=== PATIENT | male | born 1950 | race Two or more races ===

== ENCOUNTER 2017-05-25 08:24 | Day surgery (SDC) | payer MEDICARE ==
[2017-05-19 12:15] VITALS: BMI 30.8
[~2017-05-25 08:24] MED LIST: DEXAMETHASONE SOD PHOSPHATE 10 MG/ML 1 ML VIAL IV ONE; FAMOTIDINE 20 MG/2 ML VIAL IV ONE; HYDROmorphone 1 MG/ML 1 ML SYRINGE IVP PRN; LACTATED RINGERS 1,000 ML IV SCH; LIDOCAINE 1% 20 ML VIAL (10MG/ML) FOR IV START INTRADERMA PRN; MIDAZOLAM 2 MG/2 ML VIAL IV PRN; ONDANSETRON 4 MG/2 ML VIAL IVP ONE; Pre Op ABX Message 1 EACH MISC MISCELLANE ONE; SCOPOLAMINE 1.5MG/72HR PATCH TRANSDERM ONE
[2017-05-25] MEDS ORDERED: NALOXONE 0.4 MG/ML 1 ML VIAL ONE (10:33)
[2017-05-25] MEDS ORDERED: NEOSTIGMINE 1 MG/ML 10 ML VIAL ONE (10:33)
[2017-05-25] MEDS ORDERED: SUCCINYLCHOLINE CHLORIDE 100 MG/5 ML SYR IV ONE (10:33)
[2017-05-25] MEDS ORDERED: PROPOFOL 10 MG/ML 20 ML VIAL IV ONE (10:33)
[2017-05-25] MEDS ORDERED: MIDAZOLAM 2 MG/2 ML VIAL ONE (10:33)
[2017-05-25] MEDS ORDERED: ROCURONIUM BROMIDE 10 MG/ML 10 ML VIAL IV ONE (10:33)
[2017-05-25] MEDS ORDERED: fentaNYL (PF) 50 MCG/ML 2 ML AMP ONE (10:33)
[2017-05-25] MEDS ORDERED: LIDOCAINE 1% INJ 10MG/ML (20 ML MDV) ONE (10:33)
[2017-05-25] MEDS ORDERED: GLYCOPYRROLATE 0.2 MG/ML 2 ML VIAL ONE (10:33)
[2017-05-25] MEDS ORDERED: LACTATED RINGERS 1,000 ML IV ONE (11:16)
[2017-05-25 11:51] VITALS: TEMP 96.8
[2017-05-25 12:02] VITALS: RESP 18
[2017-05-25 12:41] VITALS: BP 128/66; PULSE 65
--- NOTE | 2017-05-26 12:40 | OP ---
OPERATIVE REPORT Date of Surgery: DATE OF SERVICE: May 25, 2017 SURGEON: Elmer Perry D.O. ANESTHESIA: General. PREOPERATIVE DIAGNOSES: 1. Right vocal cord mass. 2. Dysphonia. 3. Neck pain. POSTOPERATIVE DIAGNOSES: 1. Right vocal cord cystic mass. 2. Cervical osteoarthritis. OPERATIVE BLOOD LOSS: None. SPECIMENS REMOVED: Right vocal cord mass, i.e. cystic. OPERATIVE INDICATIONS: This patient has had persistent dysphonia and has been found to have a mass of the right vocal cord. Removal was recommended. Thorough oropharyngeal examination will be performed under microscopic visualization for better assessment of his airway and hypopharynx. FINDINGS: Patient had a cystic mass at the midportion of the right vocal cord which was removed. The patient has mild generalized edema. OPERATIVE PROCEDURE: This patient was taken to the operating room, placed in the supine position. A general inhalation anesthetic was administered to the patient by mask and subsequently intubated with a #5 mL T-tube. Tooth guard was placed. Jako laryngoscope was placed into the patient's mouth with care to avoid any trauma to the lips, teeth, gums and tongue. Mouth was opened, tongue with depressed and the entire kassandra and hypopharynx was evaluated including base of tongue, vallecula, epiglottis, anterior posterior commissures, true and false vocal cords, ventricles, lateral pharynx, piriform sinus, aryepiglottic folds, etc. After thorough examination this was placed on suspension on the [place] and microscopic visualization was performed utilizing a 400 mm scope. There was a cystic mass of the right vocal cord which was removed with micro instrumentation with development of mucosal flap and removal. The flap was placed back into position. This lesion was removed and the patient tolerated this well. Followup will be in the office in 1 week for a recheck. The patient is to contact me if any problems should arise. She is on 5-7 days of voice rest. No heavy lifting or bending. MMODL / IJN: [id number] /
== END 2017-05-25 13:05 | disposition home or self-care (01) ==
LOC: OR 08:24
PROVIDERS: ATTEND Otolaryngology
DX: J38.3 Other diseases of vocal cords (principal); R49.0 Dysphonia; M47.812 Spondylosis without myelopathy or radiculopathy, cervical region; I10 Essential (primary) hypertension; E78.5 Hyperlipidemia, unspecified; Z87.891 Personal history of nicotine dependence; Z79.82 Long term (current) use of aspirin; Z79.899 Other long term (current) drug therapy
CPT/HCPCS: 88305; 31541; J2250; J1100; J2310; J2710; J2405; J2001; J3010; J0330; J2704

== ENCOUNTER → 2018-09-12 | Outpatient (CLI) | payer MEDICARE ==
[2018-09-12 13:29] LABS: HGB 15.4 gm/dL (13.0-17.5); MCH 28.5 pg (25.0-35.0); MCHC 32.7 g/dL (31.0-37.0); MCV 87.1 fL (80.0-100.0); Mean Platelet Volume 6.5; Platelet Count 348 k/uL (150-450); RDW 13.2 % (11.5-15.5); WBC 6.7 k/uL (3.8-10.6)
[2018-09-12 13:51] LABS: Anion Gap 9 mmol/L; Blood Urea Nitrogen 23 mg/dL (9-20); Carbon Dioxide 30 mmol/L (22-30); Chloride 102 mmol/L (98-107); Potassium 4.4 mmol/L (3.5-5.1); Sodium 141 mmol/L (137-145)
== END | disposition home or self-care (01) ==
LOC: LABPAT 11:50
PROVIDERS: ATTEND Internal Medicine Cardiovascular Disease
DX: Z01.812 Encounter for preprocedural laboratory examination (principal); R06.02 Shortness of breath
CPT/HCPCS: 80051; 82565; 84520; 85027

== ENCOUNTER 2018-09-20 07:18 | Day surgery (SDC) | payer MEDICARE ==
[2018-09-12 15:18] VITALS: BMI 33.7
[~2018-09-20 07:18] MED LIST changes: +ALPRAZolam 0.25 MG TAB PO PRN; +ALPRAZolam 0.5 MG TAB PO PRN; +ASPIRIN 325 MG TAB PO STA; +ATORVASTATIN 80 MG TAB PO STA; -DEXAMETHASONE SOD PHOSPHATE 10 MG/ML 1 ML VIAL IV ONE; -FAMOTIDINE 20 MG/2 ML VIAL IV ONE; -HYDROmorphone 1 MG/ML 1 ML SYRINGE IVP PRN; -LACTATED RINGERS 1,000 ML IV SCH; -LIDOCAINE 1% 20 ML VIAL (10MG/ML) FOR IV START INTRADERMA PRN; -MIDAZOLAM 2 MG/2 ML VIAL IV PRN; +NITROGLYCERIN SL TABS 0.4 MG TAB SUBLINGUAL PRN; -ONDANSETRON 4 MG/2 ML VIAL IVP ONE; -Pre Op ABX Message 1 EACH MISC MISCELLANE ONE; -SCOPOLAMINE 1.5MG/72HR PATCH TRANSDERM ONE; +SODIUM CHLORIDE 0.9% 1,000 ML in EMPTY BAG 1 BAG IV ONE
[2018-09-20] MEDS ORDERED: SODIUM CHLORIDE 0.9% 1,000 ML in EMPTY BAG 1 BAG IV ONE (07:26)
[2018-09-20] MEDS ORDERED: ALPRAZolam 0.25 MG TAB PO PRN (07:26)
[2018-09-20] MEDS ORDERED: ALPRAZolam 0.5 MG TAB PO PRN (07:26)
[2018-09-20] MEDS ORDERED: ASPIRIN 325 MG TAB PO STA (07:26)
[2018-09-20] MEDS ORDERED: ATORVASTATIN 80 MG TAB PO STA (07:26)
[2018-09-20] MEDS ORDERED: SODIUM CHLORIDE 0.9% 1,000 ML IV ONE (07:36)
[2018-09-20 07:55] VITALS: RESP 16; TEMP 98
[2018-09-20] MEDS ORDERED: LIDOCAINE 1% INJ 10MG/ML (20 ML MDV) ONE (08:27)
[2018-09-20] MEDS ORDERED: fentaNYL (PF) 50 MCG/ML 2 ML AMP ONE (08:27)
[2018-09-20] MEDS ORDERED: LIDOCAINE 1% INJ 10MG/ML (20 ML MDV) SQ ONE (08:28)
[2018-09-20] MEDS ORDERED: fentaNYL (PF) 50 MCG/ML 2 ML AMP IV ONE (08:30)
[2018-09-20] MEDS ORDERED: MIDAZOLAM 2 MG/2 ML VIAL IVP ONE (08:30)
[2018-09-20] MEDS ORDERED: IOPAMIDOL-370 125ML BTL INJ ONE (08:42)
[2018-09-20] MEDS ORDERED: RX INFO: IV CONTRAST WAS GIVEN 1 EACH MISC MISCELLANE PRN (08:49)
[2018-09-20] MEDS ORDERED: SODIUM CHLORIDE 0.9% 1,000 ML IV SCH (09:00)
--- NOTE | 2018-09-20 09:20 | CC ---
CARDIAC CATHETERIZATION REPORT INDICATION: Shortness of breath with abnormal stress test. PROCEDURE NOTE: After obtaining informed consent, left heart catheterization, coronary angiogram are performed via the right femoral artery using standard Giselle catheters. Patient tolerated the procedure well without any obvious immediate complications. A femoral angiogram was performed and Angio-Seal was deployed for hemostasis. Patient received moderate conscious sedation and total sedation time was 30 minute. FINDINGS: HEMODYNAMICS: Left ventricular end-diastolic pressure is 8-12 mm there is no significant gradient across aortic valve. LEFT VENTRICULOGRAM: Left ventriculogram is not performed. ANGIOGRAPHIC DATA: LEFT MAIN CORONARY ARTERY: Left main coronary artery is normal-sized vessel and is free of stenosis. Divides into left anterior descending coronary artery and circumflex coronary artery. LAD and its branches, circumflex coronary artery and its branches are free of significant disease. Right coronary artery is a large dominant vessel and is free of significant stenosis. CONCLUSION: 1. Normal coronary arteries. 2. Normal left ventricular end-diastolic pressure. PLAN: I reviewed angiographic data with the patient and told him that his symptoms are noncardiac in origin and the stress test is a false positive stress test. His management is going to be in the form of modification optimal medical therapy. MMODL / IJN: [id number] /
--- NOTE | 2018-09-20 09:26 | LTR ---
DATE OF SERVICE: 09/20/2017 RE: Johnny Davidson Dear Jon; I performed cardiac catheterization on Johnny Davidson. A detailed catheterization note will be sent for your records. In brief, the heart catheterization revealed normal coronary arteries. I believe patient's symptoms are probably related to obesity and poor physical fitness and the stress test is a false positive stress test. Thank you for allowing me to participate in the care of this pleasant gentleman. Sincerely, MD YOVANY Lovell / MACK: [id number] /
[2018-09-20 14:20] VITALS: PULSE 71
[2018-09-20 14:22] VITALS: BP 134/85
== END 2018-09-20 14:07 | disposition home or self-care (01) ==
LOC: CATHCVL 07:18
PROVIDERS: ATTEND Internal Medicine Cardiovascular Disease
DX: R94.39 Abnormal result of other cardiovascular function study (principal); R06.02 Shortness of breath; I10 Essential (primary) hypertension; E78.49 Other hyperlipidemia; Z82.49 Family history of ischemic heart disease and other diseases of the circulatory system; Z79.82 Long term (current) use of aspirin; Z79.899 Other long term (current) drug therapy
CPT/HCPCS: 93458